=== PATIENT | female | born 1985 | race African-American/Black ===

== ENCOUNTER 2018-09-24 18:19 | Emergency (ER) | payer SELFPAY ==
[2018-09-24 18:38] LABS: HEMATOCRIT 35.4 % (36.0-47.0); HEMOGLOBIN 12.7 g/dL (12.0-15.5); MEAN CORPUSCULAR HGB CONC 35.8 g/dL (32.0-36.0); MEAN CORPUSCULAR VOLUME 78 fl (80-97); PLATELET COUNT 318 10^3/uL (150-450); RED BLOOD COUNT 4.52 10^6/uL (3.72-5.28); RED CELL DISTRIBUTION WIDTH 13.2 % (11.5-14.0); WHITE BLOOD COUNT 10.9 10^3/uL (4.0-10.5)
[2018-09-24 18:40] VITALS: BP 128/83
[2018-09-24 18:55] LABS: ABSOLUTE LYMPHOCYTES# (MANUAL) 7.4 10^3/uL (0.5-4.7); ABSOLUTE MONOCYTES # (MANUAL) 0.4 10^3/uL (0.1-1.4); ABSOLUTE NEUTROPHILS# (MANUAL) 3.1 10^3/uL (1.7-8.2); BASOPHILS % (MANUAL) 0 % (0-2); EOSINOPHILS % (MANUAL) 0 % (0-6); LYMPHOCYTES % (MANUAL) 68 % (13-45); MONOCYTES % (MANUAL) 4 % (3-13); SEGMENTED NEUTROPHILS % (MAN) 28 % (42-78); TOTAL CELLS COUNTED 100
[2018-09-24 18:56] LABS: PLATELET COMMENT ADEQUATE; POIKILOCYTOSIS SLIGHT; TARGET CELLS SLIGHT
[2018-09-24 19:00] LABS: ALANINE AMINOTRANSFERASE 48 U/L (9-52); ALBUMIN 4.2 g/dL (3.5-5.0); ALKALINE PHOSPHATASE 60 U/L (38-126); ANION GAP 13 (5-19); ASPARTATE AMINO TRANSFERASE 94 U/L (14-36); BILIRUBIN,DIRECT 0.2 mg/dL (0.0-0.4); BILIRUBIN,TOTAL 0.3 mg/dL (0.2-1.3); BLOOD UREA NITROGEN 11 mg/dL (7-20); CALCIUM 9.5 mg/dL (8.4-10.2); CARBON DIOXIDE 26 mmol/L (22-30); CHLORIDE 103 mmol/L (98-107); CREATINE KINASE 933 U/L (30-135); GLUCOSE 114 mg/dL (75-110); POTASSIUM 3.6 mmol/L (3.6-5.0); SODIUM 141.8 mmol/L (137-145); TOTAL PROTEIN 9.9 g/dL (6.3-8.2)
--- NOTE | 2018-09-24 19:01 | RADIOLOGY REPORT (SQ) ---
EXAM DESCRIPTION: CHEST SINGLE VIEW COMPLETED DATE/TIME: 09/24/2018 6:38 pm REASON FOR STUDY: bed 7 cp COMPARISON: None. EXAM PARAMETERS: NUMBER OF VIEWS: One view. TECHNIQUE: Single frontal radiographic view of the chest acquired. RADIATION DOSE: NA LIMITATIONS: None. FINDINGS: LUNGS AND PLEURA: No opacities, masses or pneumothorax. No pleural effusion. MEDIASTINUM AND HILAR STRUCTURES: No masses. Contour normal. HEART AND VASCULAR STRUCTURES: Heart normal in size. Normal vasculature. BONES: No acute findings. HARDWARE: None in the chest. OTHER: No other significant finding. IMPRESSION: NO ACUTE RADIOGRAPHIC FINDING IN THE CHEST. TECHNICAL DOCUMENTATION: JOB ID: [id number] [employer]- All Rights Reserved Reading location - IP/workstation name: [email or web address]
[2018-09-24 19:16] LABS: TROPONIN I < 0.012 ng/mL
--- NOTE | 2018-09-24 20:01 | ER Document Report ---
ED General - General Mode of Arrival: Ambulatory Information source: Patient <DORI CARLOS - Last Filed: 09/24/18 21:05> <NAVEEN PASTOR - Last Filed: 09/25/18 00:20> - General Chief Complaint: Chest Pain Stated Complaint: CHEST PAIN Time Seen by Provider: 09/24/18 19:23 Notes: Patient is a 32 year old female with HIV presents to the emergency department complaining of chest pain with associated symptoms of nausea, vomiting and diaphoresis onset today. Patient states she was laying down when she began to have burning, stabbing chest pain. Patient states the pain is located over her sternum and radiates into her back. Patient states she has heart burn and initially attributed her symptoms to this. She states she took a shower and consumed almond milk in attempt to alleviate the symptoms but obtained no relief. Patient denies any trouble breathing or history of pancreatitis. Patient is currently prescribed antiretroviral medication but states she ran out of this approximately 1 month ago. Patient states that she contracted HIV via a sexual partner approximately 14 years ago. (DORI CARLOS) - Related Data Allergies/Adverse Reactions: No Known Allergies Allergy (Verified 09/24/18 18:44) Past Medical History - General Information source: Patient - Social History Smoking Status: Never Smoker Chew tobacco use (# tins/day): No Frequency of alcohol use: None Drug Abuse: None Family History: CVA - mother Patient has suicidal ideation: No Patient has homicidal ideation: No <DORI CARLOS - Last Filed: 09/24/18 21:05> Review of Systems - Review of Systems Constitutional: See HPI, Diaphoresis EENT: No symptoms reported Cardiovascular: See HPI, Chest pain Respiratory: No symptoms reported Gastrointestinal: See HPI, Nausea, Vomiting Genitourinary: No symptoms reported Female Genitourinary: No symptoms reported Musculoskeletal: No symptoms reported Skin: No symptoms reported Hematologic/Lymphatic: No symptoms reported Neurological/Psychological: No symptoms reported -: Yes All other systems reviewed and negative <DORI CARLOS - Last Filed: 09/24/18 21:05> Physical Exam <DORI CARLOS - Last Filed: 09/24/18 21:05> <NAVEEN PASTOR - Last Filed: 09/25/18 00:20> - Vital signs Vitals: Resp BP Pulse Ox 22 H 128/83 H 100 09/24/18 18:25 09/24/18 18:25 09/24/18 18:25 - Notes Notes: GENERAL: Alert, appears uncomfortable, writhing in bed. HEAD: Normocephalic, atraumatic. EYES: Pupils equal, round, and reactive to light. Extraocular movements intact. ENT: Oral mucosa moist, tongue midline. NECK: Full range of motion. Supple. Trachea midline. LUNGS: Clear to auscultation bilaterally, no wheezes, rales, or rhonchi. No respiratory distress. HEART: Regular rate and rhythm. No murmurs, gallops, or rubs. ABDOMEN: Soft,Epigastric and RUQ tenderness to palpation. Non-distended. Bowel sounds present in all 4 quadrants. EXTREMITIES: Moves all 4 extremities spontaneously. NEUROLOGICAL: Alert and oriented x3. Normal speech. PSYCH: Appears uncomfortable, writhing in bed. SKIN: Warm, dry, normal turgor. No rashes or lesions noted. (DORI CARLOS) Course - Laboratory Result Diagrams: 09/24/18 17:55 09/24/18 17:55 <DORI CARLOS - Last Filed: 09/24/18 21:05> - Laboratory Result Diagrams: 09/24/18 17:55 09/24/18 17:55 <NAVEEN PASTOR - Last Filed: 09/25/18 00:20> - Re-evaluation Re-evalutation: 09/24/18 23:31 CBC shows slight leukocytosis at 10.9 otherwise unremarkable, CMP shows elevated CK and CK-MB at 933 and 10.6 respectively but the troponin is negative by 4 hours, test is negative, lipase is normal, chest x-ray shows no acute process, given the fact that her pain does worsen sometimes with food and a gallbladder ultrasound was performed and this showed no acute process , no acute cholelithiasis or cholecystitis. EKG is nonischemic. Patient was given a GI cocktail which completely relieved her pain. Patient is advised to take Zantac 150 mg twice a day for the next 2 weeks, if this completely relieves her pain she may stop taking the Zantac daily and only uses as needed as well as make dietary modifications. Patient is to follow-up with her primary care physician and a ophthalmic asst as an outpatient if this does not completely relieve her pain. (NAVEEN PASTOR) - Vital Signs Vital signs: Temp Pulse Resp BP Pulse Ox 22 H 128/83 H 100 09/24/18 20:00 09/24/18 18:25 09/24/18 20:00 - Laboratory Laboratory results interpreted by me: 09/24/18 09/24/18 09/24/18 17:55 17:55 17:55 WBC 10.9 H Hct 35.4 L MCV 78 L Seg Neuts % (Manual) 28 L Lymphocytes % (Manual) 68 H Abs Lymphs (Manual) 7.4 H Glucose 114 H AST 94 H Creatine Kinase 933 H CK-MB (CK-2) 10.60 H Total Protein 9.9 H - EKG Interpretation by Me Additional EKG results interpreted by me: 09/24/18 23:33 EKG shows sinus rhythm at a rate of 83, normal axis, normal intervals, no ST segment elevations or depressions, there is a T wave inversion in lead III which is isolated and nonspecific, there is also isolated T wave flattening in V2 per my interpretation. (NAVEEN PASTOR) Discharge <DORI CARLOS - Last Filed: 09/24/18 21:05> <NAVEEN PASTOR - Last Filed: 09/25/18 00:20> - Discharge Clinical Impression: Heartburn, Chest pain with low risk for cardiac etiology, HIV (human immunodeficiency virus infection) Condition: Stable Disposition: HOME, SELF-CARE Additional Instructions: Reflux Disease (GERD) Gastro-Esophageal Reflux Disease (GERD) is caused by stomach acid refluxing back up into the esophagus. The valve at the end of the esophagus may be weak. This is common in persons with a hiatal hernia. GERD symptoms can include indigestion, chest pain, heartburn, or food "sticking." Certain foods, alcohol, and aspirin can make GERD worse. Please take Ranitidine (Zantac) 150 mg twice a day for the next 2 weeks. Avoid those foods that bring on your symptoms. For many people, these foods are coffee, chocolate, onions, garlic, and carbonated drinks. Don't use alcohol, aspirin, caffeine, or tobacco. Don't eat late at night -- within 4 hours of bedtime. Don't over-eat. If necessary, elevate the head of your bed about 4 inches so that stomach acid will not roll up into your esophagus. Call the doctor if you develop severe chest pain, inability to swallow fluids, fever, or worsening symptoms. Scribe Attestation: 09/25/18 00:20 I personally performed the services described in the documentation, reviewed and edited the documentation which was dictated to the scribe in my presence, and it accurately records my words and actions. (NVAEEN PASTOR) Scribe Documentation - Scribe Written by Olaf:: Olaf Chadwick, 09/24/2018 20:47 acting as scribe for :: Cuauhtemoc <DORI CARLOS - Last Filed: 09/24/18 21:05>
[2018-09-24] MEDS ORDERED: LIDOCAINE 2% VISCOUS SOLN 20 ML UDCUP PO ONE (20:07)
[2018-09-24] MEDS ORDERED: MAG HYDROX/AL HYDROX/SIMETH SUSP 30 ML UDCUP PO ONE (20:07)
[2018-09-24] MEDS ORDERED: METOCLOPRAMIDE HCL ORAL SOLN 10 MG/10 ML UDCUP PO ONE (20:07)
--- NOTE | 2018-09-24 21:39 | RADIOLOGY REPORT (SQ) ---
US ABDOMEN LIMITED HISTORY: Right upper quadrant pain. COMPARISON: None. TECHNIQUE: Grayscale and color Doppler imaging of the right upper quadrant was performed. FINDINGS: The liver measures 14.9 cm. Normal liver echogenicity. The main portal vein has normal hepatopedal flow. No shadowing gallstones are seen. No pericholecystic fluid or gallbladder wall thickening. Common bile duct measures 1 mm. Visualized pancreas is unremarkable. Right kidney measures 11.8 cm in length, without hydronephrosis. Visualized portions of the IVC and aorta are patent. IMPRESSION: No cholelithiasis or acute cholecystitis.
--- NOTE | 2018-09-25 09:36 | EKG REPORT ---
SEVERITY:- NORMAL ECG - SINUS RHYTHM : Confirmed by: Maria Teresa Tomas MD 25-Sep-2018 09:36:11
== END 2018-09-24 23:50 | disposition home or self-care (01) ==
LOC: ER 18:19
DX: R12 Heartburn (principal); R07.9 Chest pain, unspecified; R10.816 Epigastric abdominal tenderness; R10.811 Right upper quadrant abdominal tenderness; D72.829 Elevated white blood cell count, unspecified; R74.8 Abnormal levels of other serum enzymes; R11.2 Nausea with vomiting, unspecified; R61 Generalized hyperhidrosis; Z21 Asymptomatic human immunodeficiency virus [HIV] infection status; T37.5X6A Underdosing of antiviral drugs, initial encounter; Z91.128 Patient's intentional underdosing of medication regimen for other reason; Z91.14 Patient's other noncompliance with medication regimen
CPT/HCPCS: 93005; 99285; 36415; 82553; 82550; 83690; 84703; 85025; 80053; 84484; 71045; 76705; 93010; J3490

== ENCOUNTER → 2019-06-09 | Outpatient (CLI) | payer SELFPAY ==
--- NOTE | 2019-06-09 10:05 | WOMENS IMAGING REPORT ---
EXAM DESCRIPTION: U/S ABDOMEN LTD W/DOPPLER COMPLETED DATE/TIME: 06/09/2019 8:48 am REASON FOR STUDY: R74.8 ABNORMAL LEVELS OF OTHER SERUM ENZYMES R74.8 ABNORMAL LEVELS OF OTHER SERUM ENZYMES COMPARISON: Right upper quadrant ultrasound 09/24/2018 TECHNIQUE: Dynamic and static grayscale images acquired of the abdomen and recorded on PACS. Additio nal selected color Doppler and spectral images recorded. LIMITATIONS: None. FINDINGS: PANCREAS: Midline pancreas unremarkable LIVER: No masses. Echotexture normal. LIVER VASCULATURE: Normal directional flow of the main portal vein and hepatic veins. GALLBLADDER: There are now multiple tiny shadowing stones in the gallbladder, new compared to 2017. No gallbladder wall thickening or pericholecystic fluid. ULTRASOUND-DETECTED HAWTHORNE'S SIGN: Negative. INTRAHEPATIC DUCTS AND COMMON DUCT: Common bile duct measures 3 to 4 mm at the jad hepatis. Distal most common duct not well seen due to duodenum gas. Distal ductal stones could not entirely be excl uded. Consider MRCP for followup INFERIOR VENA CAVA: Normal flow. AORTA: No aneurysm. RIGHT KIDNEY: Normal size. Normal echogenicity. No solid or suspicious masses. No hydronephrosis. No calcifications. PERITONEAL AND RIGHT PLEURAL SPACE: No ascites or effusions. OTHER: No other significant findings. IMPRESSION: Since the prior ultrasound exam 09/24/2018, patient has developed innumerable tiny stone s in the gallbladder. Entire common bile duct was not visualized today by ultrasound, distal common duct stone could not be excluded. TECHNICAL DOCUMENTATION: JOB ID: [id number] [employer]- All Rights Reserved Reading location - IP/workstation name: [email or web address]
== END ==
LOC: WI 09:17
PROVIDERS: ATTEND Physician Assistant Medical
DX: R74.8 Abnormal levels of other serum enzymes (principal)
CPT/HCPCS: 76705; 93976

== ENCOUNTER 2019-09-21 13:55 | Emergency (ER) | payer SELFPAY ==
--- NOTE | 2019-09-21 14:44 | ER Document Report ---
HPI - HPI Patient complains to provider of: possible Time Seen by Provider: 09/21/19 14:38 Onset: Other Pain Level: Denies Context: This 33-year-old female presents emergency department with complaints of nausea occasional vomiting and occasional dizziness for the past 2 months. She reports she felt the same way when she was with her first child. She reports she is currently on her menses. Urine test are negative but she reports this happened last time she was . Denies fever diarrhea. Denies abdominal pain. Denies pain with void. Patient is here for a blood test Associated Symptoms: Nausea Exacerbated by: Denies Relieved by: Denies Similar symptoms previously: Yes Recently seen / treated by doctor: No - REPRODUCTIVE Reproductive: DENIES: : Past Medical History - General Information source: Patient - Social History Smoking Status: Unknown if Ever Smoked Chew tobacco use (# tins/day): No Frequency of alcohol use: None Drug Abuse: None Lives with: Family Family History: CVA Patient has suicidal ideation: No Patient has homicidal ideation: No Renal/ Medical History: Denies: Hx Peritoneal Dialysis Traumatic Medical History: Reports: Hx Fractures Past Surgical History: Reports: Hx Section, Hx Orthopedic Surgery Vertical Provider Document - CONSTITUTIONAL Agree With Documented VS: Yes Exam Limitations: No Limitations General Appearance: WD/WN, No Apparent Distress - INFECTION CONTROL TRAVEL OUTSIDE OF THE [place] IN LAST 30 DAYS: No - HEENT HEENT: Atraumatic, Normocephalic - NECK Neck: Normal Inspection, Supple. negative: Lymphadenopathy-Left, Lymphadenopathy-Right - RESPIRATORY Respiratory: Breath Sounds Normal, No Respiratory Distress - CARDIOVASCULAR Cardiovascular: Regular Rate - GI/ABDOMEN Gastrointestinal: Abdomen Soft, Abdomen Non-Tender - MUSCULOSKELETAL/EXTREMETIES Musculoskeletal/Extremeties: MAEW, FROM - NEURO Level of Consciousness: Awake, Alert, Appropriate Motor/Sensory: No Motor Deficit - DERM Integumentary: Warm, Dry Course - Re-evaluation Re-evalutation: 09/21/19 19:40 Patient presented the emergency department because she had symptoms as she is . Reports she is currently on her menses but this is what happened when she was last time. hCG is negative. Patient was instructed on this. She was instructed to follow-up with [facility] or the health department as indicated. Serum HCG, Qual NEGATIVE (NEGATIVE) 09/21/19 14:54 - Vital Signs Vital signs: Temp Pulse Resp BP Pulse Ox 98.7 F 75 113/68 100 09/21/19 14:15 09/21/19 14:15 09/21/19 14:15 09/21/19 14:15 Discharge - Discharge Clinical Impression: Nausea, Dizziness Condition: Stable Disposition: HOME, SELF-CARE Instructions: Dizziness ([facility]), Nausea or Vomiting, Nonspecific ([facility]), [facility], [facility] Additional Instructions: *You have been evaluated for nausea dizziness *Your test was negative *Follow up with your primary care provider, [facility] or the health department for recheck within 1 week *Return to ED for worsening condition, changes, needs Referrals: LETICIA WOOD MD [Primary Care Provider] - Follow up in 1 week
[2019-09-21 16:22] VITALS: BP 110/78
== END 2019-09-21 16:21 | disposition home or self-care (01) ==
LOC: ER 13:55
DX: R11.0 Nausea (principal); R42 Dizziness and giddiness
CPT/HCPCS: 36415; 84703; 99284

== ENCOUNTER 2019-09-26 13:04 | Emergency (ER) | payer SELFPAY ==
[2019-09-26] MEDS ORDERED: METOCLOPRAMIDE HCL 10 MG TABLET PO ONE (13:29)
--- NOTE | 2019-09-26 13:30 | ER Document Report ---
ED Medical Screen (RME) - General Chief Complaint: Nausea/Vomiting Stated Complaint: VOMITING,ABDOMINAL PAIN Time Seen by Provider: 09/26/19 13:26 Primary Care Provider: LETICIA WOOD MD [Primary Care Provider] - Follow up as needed TRAVEL OUTSIDE OF THE [place] IN LAST 30 DAYS: No - HPI Notes: 09/26/19 13:29 Patient is a 33-year-old female with history of HIV who presents complaining of intermittent nausea, vomiting, and feeling of her abdomen growing for the past month. She was here a few days ago and had unremarkable blood hCG test. Patient states that she just finished her menstrual cycle. She is having pain to her right upper quadrant epigastric that is described as mild currently. Last bowel movement was today and soft. Last episode of emesis was last night. She is able to tolerate p.o. today. No fever. I have treated and performed a rapid initial assessment of this patient. A comprehensive ED assessment and evaluation of the patient, analysis of test results and completion of medical decision making process will be conducted by additional ED providers. PHYSICAL EXAMINATION: GENERAL: Well-appearing, well-nourished and in no acute distress. A&Ox4. Answers questions appropriately. Abdomen: Limited exam in triage. Patient has mild tenderness right upper quadrant. - Related Data Allergies/Adverse Reactions: No Known Allergies Allergy (Verified 09/26/19 13:26) Home Medications: bictarvi Past Medical History - Social History Chew tobacco use (# tins/day): No Frequency of alcohol use: None Drug Abuse: None Renal/ Medical History: Denies: Hx Peritoneal Dialysis Traumatic Medical History: Reports: Hx Fractures Past Surgical History: Reports: Hx Section, Hx Orthopedic Surgery Physical Exam - Vital signs Vitals: Temp Pulse Resp BP Pulse Ox 98.0 F 88 20 116/83 100 09/26/19 13:16 09/26/19 13:16 09/26/19 13:16 09/26/19 13:16 09/26/19 13:16 Course - Vital Signs Vital signs: Temp Pulse Resp BP Pulse Ox 98.0 F 88 20 116/83 100 09/26/19 13:16 09/26/19 13:16 09/26/19 13:16 09/26/19 13:16 09/26/19 13:16 Doctor's Discharge - Discharge Referrals: LETICIA WOOD MD [Primary Care Provider] - Follow up as needed
[2019-09-26 14:11] LABS: ABSOLUTE BASOPHILS # (AUTO) 0.1 10^3/uL (0.0-0.2); ABSOLUTE EOSINOPHILS # (AUTO) 0.2 10^3/uL (0.0-0.6); ABSOLUTE LYMPHOCYTES (AUTO) 3.9 10^3/uL (0.5-4.7); ABSOLUTE MONOCYTES (AUTO) 0.9 10^3/uL (0.1-1.4); ABSOLUTE NEUT (AUTO) 4.4 10^3/uL (1.7-8.2); BASOPHILS % (AUTO) 0.9 % (0-2); HEMOGLOBIN 13.5 g/dL (12.0-15.5); MEAN CORPUSCULAR HEMOGLOBIN 29.6 pg (27.0-33.4); MEAN CORPUSCULAR HGB CONC 35.5 g/dL (32.0-36.0); MEAN CORPUSCULAR VOLUME 83 fl (80-97); MONOCYTES % (AUTO) 9.7 % (3-13); PLATELET COUNT 401 10^3/uL (150-450); RED BLOOD COUNT 4.55 10^6/uL (3.72-5.28); RED CELL DISTRIBUTION WIDTH 14.4 % (11.5-14.0); SEGMENTED NEUTROPHILS % (AUTO) 46.4 % (42-78); TOTAL CELLS COUNTED % (AUTO) 100 %; WHITE BLOOD COUNT 9.5 10^3/uL (4.0-10.5)
[2019-09-26 14:17] LABS: APPEARANCE,URINE CLEAR; BILIRUBIN,URINE NEGATIVE (NEGATIVE); COLOR,URINE STRAW; GLUCOSE, URINE NEGATIVE (NEGATIVE); KETONES,URINE NEGATIVE (NEGATIVE); PROTEIN,URINE NEGATIVE (NEGATIVE); URINE SPECIFIC GRAVITY 1.002; UROBILINOGEN,URINE NEGATIVE mg/dL (<2.0)
[2019-09-26 14:24] LABS: ALBUMIN 4.7 g/dL (3.5-5.0); ALKALINE PHOSPHATASE 64 U/L (38-126); ANION GAP 13 (5-19); ASPARTATE AMINO TRANSFERASE 35 U/L (14-36); BILIRUBIN,DIRECT 0.1 mg/dL (0.0-0.4); BILIRUBIN,TOTAL 0.5 mg/dL (0.2-1.3); BLOOD UREA NITROGEN 9 mg/dL (7-20); CALCIUM 10.1 mg/dL (8.4-10.2); CARBON DIOXIDE 27 mmol/L (22-30); CHLORIDE 100 mmol/L (98-107); GLUCOSE 86 mg/dL (75-110); POTASSIUM 4.2 mmol/L (3.6-5.0); TOTAL PROTEIN 9.5 g/dL (6.3-8.2)
--- NOTE | 2019-09-26 14:40 | RADIOLOGY REPORT (SQ) ---
EXAM DESCRIPTION: KUB/ABDOMEN (SINGLE VIEW) COMPLETED DATE/TIME: 09/26/2019 2:26 pm REASON FOR STUDY: abd pain, feeling bloated COMPARISON: None. NUMBER OF VIEWS: One view. TECHNIQUE: Supine radiographic image of the abdomen acquired. LIMITATIONS: None. FINDINGS: BOWEL GAS PATTERN: Normal bowel gas pattern. No dilated loops. CALCIFICATIONS: No suspicious calcifications. SOFT TISSUES: No gross mass or suggestion of organomegaly. HARDWARE: None in the abdomen. BONES: No acute fracture. No worrisome bone lesions. OTHER: No other significant finding. IMPRESSION: Nonobstructive pattern of bowel gas, with gas present to the rectum. No free air in the abdomen on supine radiograph. Moderate burden of stool in the colon. TECHNICAL DOCUMENTATION: JOB ID: [id number] [employer]- All Rights Reserved Reading location - IP/workstation name: [email or web address]
--- NOTE | 2019-09-26 14:41 | ER Document Report ---
ED General - General Chief Complaint: Nausea/Vomiting Stated Complaint: VOMITING,ABDOMINAL PAIN Time Seen by Provider: 09/26/19 13:26 Primary Care Provider: LETICIA WOOD MD [Primary Care Provider] - Follow up in 1 week Mode of Arrival: Ambulatory Information source: Patient Notes: 33-year-old female presents emergency department with complaints of nausea vomiting abdominal pain for the past month. She was evaluated here last week for same symptoms. She had insisted she was possibly . She reports she had the same symptoms when she was with her daughter. Her beta hCG was negative. Patient returns today with same complaints of nausea vomiting intermittent abdominal pain. Denies fever vomiting diarrhea. Denies pain with void. Patient reports that she has had a sonogram in the past that had reflected gallstones. She was supposed to follow-up with her primary care provider but due to some insurance problems she never did. Patient also reports she is HIV positive for the past 14 years. She reports no problems with her T- cell count TRAVEL OUTSIDE OF THE [place] IN LAST 30 DAYS: No - Related Data Allergies/Adverse Reactions: No Known Allergies Allergy (Verified 09/26/19 14:33) Home Medications: bictarvi Past Medical History - General Information source: Patient Last Menstrual Period: 09/19/19 - Social History Smoking Status: Never Smoker Chew tobacco use (# tins/day): No Frequency of alcohol use: None Drug Abuse: None Lives with: Family Family History: CVA Patient has suicidal ideation: No Patient has homicidal ideation: No Renal/ Medical History: Denies: Hx Peritoneal Dialysis Traumatic Medical History: Reports: Hx Fractures Infectious Medical History: Reports: Hx HIV - for 14 years Past Surgical History: Reports: Hx Section, Hx Orthopedic Surgery Review of Systems - Review of Systems Notes: Review HPI for review of systems., All other systems negative Physical Exam - Vital signs Vitals: Temp Pulse Resp BP Pulse Ox 98.0 F 88 20 116/83 100 09/26/19 13:16 09/26/19 13:16 09/26/19 13:16 09/26/19 13:16 09/26/19 13:16 - Notes Notes: PHYSICAL EXAMINATION: GENERAL: Well-appearing and in no acute distress HEAD: Atraumatic, normocephalic. EYES: extraocular movements intact, sclera anicteric, conjunctiva are normal. ENT: nares patent, oropharynx clear without exudates. Moist mucous membranes. NECK: Normal range of motion, supple without lymphadenopathy LUNGS: CTAB and equal. No wheezes rales or rhonchi. HEART: Regular rate and rhythm without murmurs ABDOMEN: Soft, no tenderness. No guarding, no rebound EXTREMITIES: Normal range of motion, no pitting edema. No cyanosis. NEUROLOGICAL: Cranial nerves grossly intact. Normal sensory/motor exams. PSYCH: Normal mood, normal affect. SKIN: Warm, Dry, normal turgor, no rashes or lesions noted Course - Re-evaluation Re-evalutation: 09/26/19 15:04 33-year-old female with history of HIV positive presents emergency department with complaints of abdominal pain that comes and goes with intermittent nausea vomiting. Reports she is been told before she has gallstones. Denies pain denies vomiting at this time. Labs unremarkable abdominal ultrasound does show gallstones with no gallbladder wall thickening. Patient was instructed on this. Instructed on low-fat diet. Was also instructed to follow-up with her primary care provider in [place] for a referral to a surgeon. She was instructed to return to the emergency department for worsening symptoms concerns. She verbalized understanding to all instructions. Abdomen Ultrasound 09/26/19 13:29 IMPRESSION: Gallstones. No gallbladder wall thickening. No pericholecystic fluid. No biliary ductal dilation. Negative sonographic Ricketts's sign. KUB X-Ray 09/26/19 13:29 IMPRESSION: Nonobstructive pattern of bowel gas, with gas present to the rectum. No free air in the abdomen on supine radiograph. Moderate burden of stool in the colon. 09/26/19 13:50 09/26/19 13:50 MCV 83 fl (80-97) 09/26/19 13:50 MCH 29.6 pg (27.0-33.4) 09/26/19 13:50 MCHC 35.5 g/dL (32.0-36.0) 09/26/19 13:50 RDW 14.4 % (11.5-14.0) H 09/26/19 13:50 Seg Neutrophils % 46.4 % (42-78) 09/26/19 13:50 Chloride 100 mmol/L (98-107) 09/26/19 13:50 Carbon Dioxide 27 mmol/L (22-30) 09/26/19 13:50 Anion Gap 13 (5-19) 09/26/19 13:50 Est GFR ( Amer) > 60 (>60) 09/26/19 13:50 Glucose 86 mg/dL (75-110) 09/26/19 13:50 Calcium 10.1 mg/dL (8.4-10.2) 09/26/19 13:50 Total Bilirubin 0.5 mg/dL (0.2-1.3) 09/26/19 13:50 AST 35 U/L (14-36) 09/26/19 13:50 Alkaline Phosphatase 64 U/L (38-126) 09/26/19 13:50 Total Protein 9.5 g/dL (6.3-8.2) H 09/26/19 13:50 Albumin 4.7 g/dL (3.5-5.0) 09/26/19 13:50 Lipase 84.8 U/L (23-300) 09/26/19 13:50 Urine Color STRAW 09/26/19 13:50 Urine Appearance CLEAR 09/26/19 13:50 Urine pH 6.0 (5.0-9.0) 09/26/19 13:50 Ur Specific [place] 1.002 09/26/19 13:50 Urine Protein NEGATIVE mg/dL (NEGATIVE) 09/26/19 13:50 Urine Glucose (UA) NEGATIVE mg/dL (NEGATIVE) 09/26/19 13:50 Urine Ketones NEGATIVE mg/dL (NEGATIVE) 09/26/19 13:50 Urine Blood NEGATIVE (NEGATIVE) 09/26/19 13:50 Urine RBC (Auto) 2 /HPF 09/26/19 13:50 09/26/19 15:14 - Vital Signs Vital signs: Temp Pulse Resp BP Pulse Ox 97.9 F 85 14 107/67 99 09/26/19 15:32 09/26/19 15:32 09/26/19 15:32 09/26/19 15:32 09/26/19 15:32 - Laboratory Result Diagrams: 09/26/19 13:50 09/26/19 13:50 Laboratory results interpreted by me: 09/26/19 09/26/19 13:50 13:50 RDW 14.4 H Total Protein 9.5 H Discharge - Discharge Clinical Impression: Abdominal pain, Nausea and vomiting, Gallbladder disease Condition: Stable Disposition: HOME, SELF-CARE Instructions: Abdominal Pain ([facility]), Antinausea Medication ([facility]), Gallbladder Disease ([facility]), Low-Fat Diet ([facility]), Surgeon Additional Instructions: *You have been evaluated for abdominal pain, nausea and vomiting, gallbladder disease *Take medication as prescribed for nausea *Follow low-fat diet *Follow up with a surgeon within the next week *Return to ED for worsening condition, changes, needs *Return to ED if not better in 24 hours Referrals: LETICIA WOOD MD [Primary Care Provider] - Follow up in 1 week
--- NOTE | 2019-09-26 14:42 | RADIOLOGY REPORT (SQ) ---
EXAM DESCRIPTION: U/S ABDOMEN LIMITED W/O DOP COMPLETED DATE/TIME: 09/26/2019 2:26 pm REASON FOR STUDY: RUQ pain, n/v COMPARISON: 06/09/2019 TECHNIQUE: Dynamic and static grayscale images acquired of the abdomen and recorded on PACS. Billie montaño selected color Doppler and spectral images recorded. LIMITATIONS: None. FINDINGS: PANCREAS: No masses. Visualized pancreatic duct normal caliber. LIVER: No masses. Echotexture normal. LIVER VASCULATURE: Normal directional flow of the main portal vein and hepatic veins. GALLBLADDER: Gallstones. No pericholecystic fluid. No wall thickening. ULTRASOUND-DETECTED HAWTHORNE'S SIGN: Negative. INTRAHEPATIC DUCTS AND COMMON DUCT: CBD and intrahepatic ducts normal caliber. No filling defects. INFERIOR VENA CAVA: Normal flow. AORTA: No aneurysm. RIGHT KIDNEY: Normal size. Normal echogenicity. No solid or suspicious masses. No hydronephrosis. No calcifications. PERITONEAL AND RIGHT PLEURAL SPACE: No ascites or effusions. OTHER: No other significant findings. IMPRESSION: Gallstones. No gallbladder wall thickening. No pericholecystic fluid. No biliary duct al dilation. Negative sonographic Hawthorne's sign. TECHNICAL DOCUMENTATION: JOB ID: [id number] [employer]- All Rights Reserved Reading location - IP/workstation name: [email or web address]
[2019-09-26 15:32] VITALS: BP 107/67
== END 2019-09-26 15:33 | disposition home or self-care (01) ==
LOC: ER 13:04
DX: K82.9 Disease of gallbladder, unspecified (principal); R11.2 Nausea with vomiting, unspecified; R10.9 Unspecified abdominal pain; Z21 Asymptomatic human immunodeficiency virus [HIV] infection status
CPT/HCPCS: 36415; 74018; 76705; 80053; 81001; 83690; 85025; 99284